=== PATIENT | female | born 1985 | race Caucasian/White ===

== ENCOUNTER → 2019-03-09 | Outpatient (CLI) | payer OTHER ==
[2019-03-09 09:34] LABS: ALT 68 U/L (9-52); AST 55 U/L (14-36); African American GFR (CKD) >90 (>60 ml/min/1.73 sqM); Albumin 3.8 g/dL (3.5-5.0); Alkaline Phosphatase 98 U/L (38-126); Anion Gap 9 mmol/L; Blood Urea Nitrogen 8 mg/dL (7-17); Calcium 8.9 mg/dL (8.4-10.2); Carbon Dioxide 27 mmol/L (22-30); Chloride 102 mmol/L (98-107); Cholesterol 160 mg/dL (<200); Glucose 109 mg/dL (74-99); Potassium 3.9 mmol/L (3.5-5.1); Sodium 138 mmol/L (137-145); Total Bilirubin 0.5 mg/dL (0.2-1.3); Total Protein 6.9 g/dL (6.3-8.2); Triglycerides 148 mg/dL (<150)
[2019-03-09 09:48] LABS: HDL Cholesterol 46 mg/dL (40-60); LDL Cholesterol,Calculated 84 mg/dL (0-99)
[2019-03-09 09:49] LABS: T4, Free (Free Thyroxine) 1.03 ng/dL (0.78-2.19)
--- NOTE | 2019-03-09 13:13 | US ---
EXAMINATION TYPE: US pelvic complete DATE OF EXAM: 03/09/2019 COMPARISON: NONE CLINICAL HISTORY: N92.1 Menorrhagia w/irregular cycle. Pt states heavy vaginal bleeding on/off x 1 ye ar TECHNIQUE: Transabdominal (TA). Transabdominal sonographic images of the pelvis were acquired. Date of LMP: 02/26/2019 EXAM MEASUREMENTS: Uterus: 10.1 x 4.1 x 4.6 cm Endometrial Stripe: Right Horn= 0.6 cm/ Left Horn= 0.6 cm Right Ovary: 3.1 x 3.3 x 2.6 cm Left Ovary: 3.2 x 3.1 x 2.4 cm 1. Uterus: Anteverted Heterogeneous, subseptate appearance of the endometrium within the uterus 2. Endometrium: Septated appearance does not extend all the way into the cervix on the axial images s ubmitted 3.Right Ovary: wnl 4. Left Ovary: wnl 5. Bilateral Adnexa: wnl 6. Posterior cul-de-sac: wnl IMPRESSION: Findings suggest subseptate appearance to the endometrium.
[2019-03-09 17:19] LABS: Insulin Level 22.1 mIU/mL (3.0-25.0)
[2019-03-09 20:11] LABS: Hemoglobin A1C 5.5 % (4.0-6.0)
== END | disposition home or self-care (01) ==
LOC: RADUSWWP 08:27
PROVIDERS: ATTEND Obstetrics & Gynecology
DX: N92.1 Excessive and frequent menstruation with irregular cycle (principal); Z13.1 Encounter for screening for diabetes mellitus; Z13.220 Encounter for screening for lipoid disorders
CPT/HCPCS: 36415; 76856; 80053; 80061; 82627; 82670; 83001; 83002; 83036; 83525; 84402; 84439; 84443

== ENCOUNTER → 2020-01-19 | Outpatient (CLI) | payer OTHER ==
--- NOTE | 2020-01-19 08:25 | US ---
EXAMINATION TYPE: US abdomen limited DATE OF EXAM: 01/19/2020 COMPARISON: NONE CLINICAL HISTORY: R94.5 Elevated LFT. Elevated liver enzymes EXAM MEASUREMENTS: Liver Length: 17.1 cm Gallbladder Wall: 0.2 cm CBD: 0.5 cm Right Kidney: 12.4 x 4.6 x 4.5 cm Pancreas: Tail obscured by overlying bowel gas Liver: There is increased echogenicity of the hepatic parenchyma with diminished visualization of th e portal triads most commonly relating to hepatic steatosis and limiting evaluation for underlying he patic masses. Gallbladder: stones noted Evidence for sonographic Krishnamurthy's sign: no CBD: appears wnl Right Kidney: no evidence of hydronephrosis IMPRESSION: 1. Sonographic findings most commonly related to hepatic steatosis. Correlate with liver function kobi ts. 2. Cholelithiasis without sonographic evidence of acute cholecystitis.
== END | disposition home or self-care (01) ==
LOC: RADUSWWP 07:50
PROVIDERS: ATTEND Family Medicine
DX: K76.0 Fatty (change of) liver, not elsewhere classified (principal); K80.20 Calculus of gallbladder without cholecystitis without obstruction
CPT/HCPCS: 76705